=== PATIENT | male | born 1955 | race Caucasian/White ===

== ENCOUNTER 2018-02-28 14:44 | Emergency (ER) | payer OTHER ==
[2018-02-28 16:01] LABS: Absolute Monocytes 0.7 K/uL (0.1-1.3); Absolute Neutrophil 4.8 K/uL (1.8-8.0); Basophils % 0.8 % (0-1.3); Eosinophils % 1.6 % (0-4.4); Hematocrit 43.5 % (39.6-49.0); Lymphocytes % 14.5 % (15.3-44.8); MCV 81.8 fL (80-100); MPV 8.5 fL (7.6-11.3); Monocytes % 10.9 % (3.3-12.3); RBC Red Blood Cell Count 5.32 M/uL (4.33-5.43)
[2018-02-28 16:05] LABS: Protime INR 0.96
--- NOTE | 2018-02-28 16:21 | RAD REPORT ---
EXAM DESCRIPTION: Mike Single View02/28/2018 3:54 pm CLINICAL HISTORY: Abdominal pain COMPARISON: none FINDINGS: The lungs appear clear of acute infiltrate. The heart is normal size IMPRESSION: No acute abnormalities displayed
[2018-02-28 16:46] LABS: ALT/SGPT 23 U/L (12-78); AST/SGOT 22 U/L (15-37); Albumin 3.5 g/dL (3.4-5.0); Alkaline Phosphatase 72 U/L (45-117); BUN Blood Urea Nitrogen 20 mg/dL (7-18); Bicarbonate 30 mmol/L (21-32); Bilirubin Direct < 0.1 mg/dL (0-0.2); Bilirubin Total 0.4 mg/dL (0.2-1.0); Glucose Level 115 mg/dL (74-106); Magnesium 2.2 mg/dL (1.8-2.4); NT PRO-BNP 134 pg/mL (<125); Potassium 4.4 mmol/L (3.5-5.1); Protein, Total 6.8 g/dL (6.4-8.2); Sodium Level 140 mmol/L (136-145); Troponin (Emerg Dept Use Only) < 0.02 ng/mL (0.0-0.045)
--- NOTE | 2018-02-28 16:46 | RAD REPORT ---
EXAM DESCRIPTION: CT - Head Brain Wo Cont - 02/28/2018 4:30 pm CLINICAL HISTORY: DIZZINESS COMPARISON: None. TECHNIQUE: Computed axial tomography of the head was obtained. IV contrast was not requested. All CT scans are performed using dose optimization technique as appropriate and may include automated exposure control or mA/KV adjustment according to patient size. FINDINGS: An intracranial bleed is not seen . The ventricles are normal in caliber. No extra-axial fluid collection is noted. Fluid within the sinuses/ mastoids is not seen. IMPRESSION: No acute intracranial abnormality is seen. If patient's symptoms persist MRI of the bra in would be recommended.
--- NOTE | 2018-02-28 17:17 | EDPHYS ---
Physician Documentation [facility] Name: Nathanael Bradford Age: 62 yrs Sex: Male : 1955 Arrival Date: 02/28/2018 Time: 14:47 Bed 23 Private MD: ED Physician Carroll Figueroa HPI: 02/28 16:23 This 62 yrs old Male presents to ER via Ambulatory with complaints of kdr Abdominal Pain, Dizziness. 16:23 The patient presents with dizziness, sense of spinning. Onset: The symptoms/episode kdr began/occurred last night. Context: occurred The patient is traveling in his motor home with his , occurred while the patient was at rest. Modifying factors: The symptoms are alleviated by nothing, closing eyes, the symptoms are aggravated by standing up. Associated signs and symptoms: Pertinent positives:. Severity of symptoms: At their worst the symptoms were moderate in the emergency department the symptoms are unchanged. Patient's baseline: Neuro: alert and fully oriented, Motor: no deficits, Ambulation: walks without assistance, Speech: normal, The patient has a previous history of acromegaly, thyroid. The patient has not experienced similar symptoms in the past. The patient has been recently seen by a physician: Had a vocal cord procedure last week via nasal approach. Historical: - Allergies: 14:54 No Known Allergies; aa5 - Home Meds: 14:54 Tramadol Oral [Active]; Synthroid Oral [Active]; Hydrocortisone Oral [Active]; aa5 testosterone [Active]; Lyrica Oral [Active]; 17:52 Zyrtec Oral [Active]; mg2 - PMHx: 14:54 acromegaly; Thyroid problem; aa5 - PSHx: 14:54 neck sx; back sx; aa5 - Immunization history:: Adult Immunizations up to date. - Social history:: Smoking status: Patient/guardian denies using tobacco. - Ebola Screening: : No symptoms or risks identified at this time. ROS: 16:23 Constitutional: Negative for fever, chills, and weight loss, Eyes: Negative for injury, kdr pain, redness, and discharge, ENT: Negative for injury, pain, and discharge, Neck: Negative for injury, pain, and swelling, Cardiovascular: Negative for chest pain, palpitations, and edema, Respiratory: Negative for shortness of breath, cough, wheezing, and pleuritic chest pain, Back: Negative for injury and pain, : Negative for injury, bleeding, discharge, and swelling, MS/Extremity: Negative for injury and deformity, Skin: Negative for injury, rash, and discoloration, Psych: Negative for depression, anxiety, suicide ideation, homicidal ideation, and hallucinations, Allergy/Immunology: Negative for hives, rash, and allergies, Endocrine: Negative for neck swelling, polydipsia, polyuria, polyphagia, and marked weight changes, Hematologic/Lymphatic: Negative for swollen nodes, abnormal bleeding, and unusual bruising. 16:23 Abdomen/GI: Positive for abdominal pain, nausea, The patient states that since he had the procedure on his vocal cords this last week, his stomach has not felt right. 16:23 Neuro: Positive for dizziness, Visual disturbance: entire visual field in both eyes slowly drifts to the right. Exam: 16:23 Constitutional: This is a well developed, well nourished patient who is awake, alert, kdr and in no acute distress. Head/Face: Normocephalic, atraumatic. ENT: Nares patent. No nasal discharge, no septal abnormalities noted. Tympanic membranes are normal and external auditory canals are clear. Oropharynx with no redness, swelling, or masses, exudates, or evidence of obstruction, uvula midline. Mucous membranes moist. Neck: Trachea midline, no thyromegaly or masses palpated, and no cervical lymphadenopathy. Supple, full range of motion without nuchal rigidity, or vertebral point tenderness. No Meningismus. Chest/axilla: Normal chest wall appearance and motion. Nontender with no deformity. No lesions are appreciated. Cardiovascular: Regular rate and rhythm with a normal S1 and S2. No gallops, murmurs, or rubs. Normal PMI, no JVD. No pulse deficits. Respiratory: Lungs have equal breath sounds bilaterally, clear to auscultation and percussion. No rales, rhonchi or wheezes noted. No increased work of breathing, no retractions or nasal flaring. Abdomen/GI: Soft, non-tender, with normal bowel sounds. No distension or tympany. No guarding or rebound. No evidence of tenderness throughout. Back: No spinal tenderness. No costovertebral tenderness. Full range of motion. Skin: Warm, dry with normal turgor. Normal color with no rashes, no lesions, and no evidence of cellulitis. MS/ Extremity: Pulses equal, no cyanosis. Neurovascular intact. Full, normal range of motion. Psych: Awake, alert, with orientation to person, place and time. Behavior, mood, and affect are within normal limits. 16:23 Eyes: Nystagmus: nystagmus with fast component noted, bilaterally, With eyes deviated to the left, slow component to the right and fast to left. With deviation to the right no significant nystagmus. Vital Signs: 14:54 BP 159 / 95; Pulse 66; Resp 16 S; Temp 97.0(TE); Pulse Ox 97% on R/A; Weight 104.33 kg aa5 (R); Height 5 ft. 11 in. (180.34 cm) (R); Pain 0/10; 16:39 BP 170 / 94; Pulse 65; Resp 18; Pulse Ox 100% ; Pain 2/10; mg2 17:20 BP 155 / 83; Pulse 73; Resp 8; Pulse Ox 98% on R/A; mg2 18:00 BP 158 / 83; Pulse 78; Resp 18; Temp 98.6; Pulse Ox 100% on R/A; Pain 0/10; mg2 14:54 Body Mass Index 32.08 (104.33 kg, 180.34 cm) aa5 MDM: 17:16 Patient medically screened. kdr 17:16 Data reviewed: vital signs, nurses notes, lab test result(s), EKG, radiologic studies. kdr Counseling: I had a detailed discussion with the patient and/or guardian regarding: the historical points, exam findings, and any diagnostic results supporting the discharge/admit diagnosis, lab results, radiology results, the need to transfer to another facility. 02/28 15:36 Order name: Basic Metabolic Panel [facility] 02/28 15:36 Order name: CBC with Diff; Complete Time: 17: [facility] 02/28 15:36 Order name: LFT's; Complete Time: 17: [facility] 02/28 15:36 Order name: Magnesium; Complete Time: 17: [facility] 02/28 15:36 Order name: NT PRO-BNP; Complete Time: 17: [facility] 02/28 15:36 Order name: PT-INR; Complete Time: 17: [facility] 02/28 15:36 Order name: Ptt, Activated; Complete Time: 17: [facility] 02/28 15:36 Order name: Troponin (emerg Dept Use Only); Complete Time: 17:08 kdr 02/28 15:36 Order name: XRAY Chest (1 view); Complete Time: 17:08 kdr 02/28 15:36 Order name: EKG; Complete Time: 15:37 kdr 02/28 15:36 Order name: Cardiac monitoring; Complete Time: 16:00 kdr 02/28 15:36 Order name: CT Head Brain wo Cont; Complete Time: 17:08 kdr 02/28 15:36 Order name: Basic Metabolic Panel; Complete Time: 17:08 EDTN 02/28 16:36 Order name: Urine Dipstick--Ancillary (enter results) 02/28 15:36 Order name: EKG - Nurse/Tech; Complete Time: 16:07 kdr 02/28 15:36 Order name: IV Saline Lock; Complete Time: 16:00 kdr 02/28 15:36 Order name: Labs collected and sent; Complete Time: 16:00 kdr 02/28 15:36 Order name: O2 Per Protocol; Complete Time: 16:00 kdr 02/28 15:36 Order name: O2 Sat Monitoring; Complete Time: 16:00 kdr 02/28 15:36 Order name: Urine Dipstick-Ancillary (obtain specimen); Complete Time: 16:00 kdr Administered Medications: No medications were administered Disposition: 02/28/18 17:16 Transfer ordered to [facility]. Diagnosis are Dizziness and giddiness, Nystagmus and other irregular eye movements. - Reason for transfer: Higher level of care. - Accepting physician is Dr. Holland/Neurology. - Condition is Fair. - Problem is new. - Symptoms are unchanged. Signatures: Dispatcher [employer] [facility] Carroll Figueroa MD MD kdr Freda Bishop, RN RN aa5 Fawad Ogden RN RN mg2 Corrections: (The following items were deleted from the chart) 18:08 17:16 02/28/2018 17:16 Transfer ordered to [facility]. Diagnosis is mg2 Dizziness and giddiness; Nystagmus and other irregular eye movements. Reason for transfer: Higher level of care. Accepting physician is Dr. Holland/Neurology. Condition is Fair. Problem is new. Symptoms are unchanged. kdr
--- NOTE | 2018-02-28 17:17 | ER ---
Nurse's Notes [facility] Name: Nathanael Bradford Age: 62 yrs Sex: Male : 1955 Arrival Date: 02/28/2018 Time: 14:47 Bed 23 Private MD: Diagnosis: Dizziness and giddiness;Nystagmus and other irregular eye movements Presentation: 02/28 14:51 Presenting complaint: Patient states: indigestion that began 2 days ago. Pt also aa5 reports dizziness since last night. Denies vomiting. Transition of care: patient was not received from another setting of care. Onset of symptoms was January 2018. Risk Assessment: Do you want to hurt yourself or someone else? Patient reports no desire to harm self or others. Initial Sepsis Screen: Does the patient meet any 2 criteria? No. Patient's initial sepsis screen is negative. Does the patient have a suspected source of infection? No. Patient's initial sepsis screen is negative. Care prior to arrival: None. 14:51 Method Of Arrival: Ambulatory aa5 14:51 Acuity: BOLIVAR 3 aa5 Historical: - Allergies: 14:54 No Known Allergies; aa5 - Home Meds: 14:54 Tramadol Oral [Active]; Synthroid Oral [Active]; Hydrocortisone Oral [Active]; aa5 testosterone [Active]; Lyrica Oral [Active]; 17:52 Zyrtec Oral [Active]; mg2 - PMHx: 14:54 acromegaly; Thyroid problem; aa5 - PSHx: 14:54 neck sx; back sx; aa5 - Immunization history:: Adult Immunizations up to date. - Social history:: Smoking status: Patient/guardian denies using tobacco. - Ebola Screening: : No symptoms or risks identified at this time. Screenin:17 Abuse screen: Denies threats or abuse. Denies injuries from another. Nutritional mg2 screening: No deficits noted. Tuberculosis screening: No symptoms or risk factors identified. Fall Risk Secondary diagnosis (15 points) dizziness. Assessment: 15:15 General: Appears in no apparent distress. comfortable, Behavior is calm, cooperative. mg2 Pain: Complains of pain in abdomen Pain does not radiate. Pain currently is 5 out of 10 on a pain scale. Quality of pain is described as aching, Pain began gradually, Is intermittent, Alleviated by medications. Neuro: Level of Consciousness is awake, alert, obeys commands, Oriented to person, place, time, situation. Cardiovascular: Capillary refill < 3 seconds Patient's skin is warm and dry. Respiratory: Airway is patent Respiratory effort is even, unlabored, Respiratory pattern is regular, symmetrical. GI: Abdomen is non-distended, Reports lower abdominal pain, upper abdominal pain, indigestion. : No signs and/or symptoms were reported regarding the genitourinary system. EENT: No signs and/or symptoms were reported regarding the EENT system. Derm: Skin is intact, Skin is pink, warm \T\ dry. normal. Musculoskeletal: No signs and/or symptoms reported regarding the musculoskeletal system. 17:20 Reassessment: Patient appears in no apparent distress at this time. Patient and/or mg2 family updated on plan of care and expected duration. Pain level reassessed. Patient is alert, oriented x 3, equal unlabored respirations, skin warm/dry/pink. 17:50 Reassessment: Patient appears in no apparent distress at this time. Patient and/or mg2 family updated on plan of care and expected duration. Pain level reassessed. Patient is alert, oriented x 3, equal unlabored respirations, skin warm/dry/pink. report given to AMELIA Marin of [facility] in [place]. 18:05 GI: Bowel sounds present X 4 quads. Abd is soft and non tender. mg2 Vital Signs: 14:54 BP 159 / 95; Pulse 66; Resp 16 S; Temp 97.0(TE); Pulse Ox 97% on R/A; Weight 104.33 kg aa5 (R); Height 5 ft. 11 in. (180.34 cm) (R); Pain 0/10; 16:39 BP 170 / 94; Pulse 65; Resp 18; Pulse Ox 100% ; Pain 2/10; mg2 17:20 BP 155 / 83; Pulse 73; Resp 8; Pulse Ox 98% on R/A; mg2 18:00 BP 158 / 83; Pulse 78; Resp 18; Temp 98.6; Pulse Ox 100% on R/A; Pain 0/10; mg2 14:54 Body Mass Index 32.08 (104.33 kg, 180.34 cm) aa5 ED Course: 14:47 Patient arrived in ED. rg4 14:52 Triage completed. aa5 14:52 Arm band placed on. aa5 14:57 Fawad Ogden, RN is Primary Nurse. mg2 15:15 Carroll Figueroa MD is Attending Physician. kdr 15:17 Patient has correct armband on for positive identification. Bed in low position. Call mg2 light in reach. Side rails up X2. Pulse ox on. NIBP on. Door closed. Warm blanket given. 15:54 XRAY Chest (1 view) In Process Unspecified. EDMS 15:59 No provider procedures requiring assistance completed. Inserted saline lock: 20 gauge mg2 in right antecubital area, using aseptic technique. Blood collected. 16:29 CT completed. Patient tolerated procedure well. Patient moved back from CT. bq 16:30 CT Head Brain wo Cont In Process Unspecified. EDMS 18:04 Patient transferred, IV remains in place. mg2 Administered Medications: No medications were administered Outcome: 17:16 ER care complete, transfer ordered by . kdr 18:04 Transferred by ground EMS to [facility], Transfer form completed. mg2 18:04 Condition: stable 18:04 Instructed on the need for transfer, Demonstrated understanding of instructions. 18:08 Patient left the ED. mg2 Signatures: Dispatcher [employer] EDMS Carroll Figueroa MD MD kdr Alejandra Muir bq Freda Bishop, RN RN Christine Hernandez [facility] Fawad Ogden, RN RN mg2
[2018-02-28 20:40] LABS: Urine Blood NEGATIVE (NEG); Urine Glucose NEGATIVE (NEG); Urine Protein NEGATIVE (NEG); Urine pH 6.5 (5.0-7.0)
--- NOTE | 2018-03-01 07:55 | EKG ---
Test Date: 2018-02-28 Test Time: 15:52:51 [employer]: MG MEASUREMENT RESULTS: Intervals: Rate: 62 MA: 186 QRSD: 106 QT: 416 QTc: 422 [place]: P: 46 MA: 186 QRS: 8 T: 44 INTERPRETIVE STATEMENTS: Normal sinus rhythm Cannot rule out Anterior infarct, age undetermined Abnormal ECG No previous ECG available for comparison Electronically Signed On 03-01-18 07:54:45 CDT by Brock Francois
== END 2018-02-28 18:08 | disposition short-term general hospital (02) ==
LOC: ER 14:44
DX: H55.09 Other forms of nystagmus (principal); H55.89 Other irregular eye movements; E07.9 Disorder of thyroid, unspecified
CPT/HCPCS: 36415; 70450; 71045; 80048; 80076; 81003; 83735; 83880; 84484; 85025; 85610; 85730; 93005; 99285